=== PATIENT | female | born 1975 | race African-American/Black ===

== ENCOUNTER 2016-10-10 13:29 | Emergency (ER) | payer OTHER ==
--- NOTE | ~2016-10-10 | CT16 ---
[facility] A Service of [facility] RADIOLOGY TEXT RESULTS PATIENT: LIZETH LALMAS LOCATION: [facility] : 79 UNIT #: [id number] AGE: [address]: Piero Godinez DO SEX: F ORDER DR: [id number] [facility] [address] [place], [place] [address] [id number] E MR#: [id number] Acc #: [id number] NAME: LIZETH LLAMAS : 1975 SEX: F STUDY DATE/TIME: 10/10/2016 16:07 UNIT: [facility] ROOM: STUDY DESCRIPTION: CT Angio Chest for PE Attending Physician: Piero Godinez D.O. Ordering Physician: Piero Godinez D.O. Primary Care Physician: Primary Care Physician No MEDICAL IMAGING REPORT This report is preliminary unless electronic signature is present EXAM CTA chest, PE protocol INDICATIONS Chest pain, shortness of air and elevated D-dimer level for the past 3 days. PROCEDURE Contrast-enhanced CTA of the chest with attention on opacification of the pulmonary arteries. Coronal 3-D MIP and sagittal reformatted images were reconstructed and submitted. 80 mL of Isovue-370. This CT exam was performed with one or more of the following radiation dose reduction techniques: Automatic exposure control, adjustment of mA and/or kV according to patient size, and iterative reconstruction. COMPARISON None FINDINGS Suboptimal contrast bolus. No large central pulmonary embolus. Small peripheral pulmonary emboli are difficult to exclude. No convincing evidence for acute aortic injury. No acute findings in the included upper abdomen. There is some linear atelectasis in the lung bases. No dense consolidation. No aggressive appearing bone lesion. IMPRESSION 1. No definite acute findings. Contrast bolus is suboptimal, but there is no evidence for a large central pulmonary embolus. Small peripheral pulmonary emboli are difficult to exclude. 2. Linear atelectasis in the lung bases. [facility] A Service of [facility] RADIOLOGY TEXT RESULTS PATIENT: LIZETH LLAMAS LOCATION: [facility] : 79 UNIT #: [id number] AGE: [address]: Piero Godinez DO SEX: F ORDER DR: Dictated by... Hany Gamez M.D. THIS IS AN ELECTRONICALLY VERIFIED REPORT Hany Gamez M.D. at 10/12/2016 6:59 AM EED/psc TD: 10/10/2016 23:22 JOB #: [id number] MEDICAL IMAGING REPORT COPY
--- NOTE | ~2016-10-10 | EKG ---
PATIENT: LIZETH LLAMAS UNIT #: [id number] Ventricular Rate: 90 BPM Atrial Rate: 90 BPM P-R Interval: 134 ms QRS Duration: 88 ms Q-T Interval: 368 ms QTC Calculation(Bezet): 450 ms P Marshall: 25 degrees Calculated R Marshall: 3 degrees Calculated T Marshall: 16 degrees Diagnosis Line: Normal sinus rhythm Diagnosis Line: Moderate voltage criteria for LVH, may be normal Diagnosis Line: variant Diagnosis Line: Borderline ECG Diagnosis Line: No previous ECGs available Diagnosis Line: Confirmed by HOMERO WITT MD ([id number]) on Diagnosis Line: 10/11/2016 12:09:13 AM INTERPRETING MD: MIRYAM ORANTES
--- NOTE | ~2016-10-10 | NM69 ---
[facility] A Service of [facility] RADIOLOGY TEXT RESULTS PATIENT: LIZETH LLAMAS LOCATION: [facility] : 79 UNIT #: [id number] AGE: [address]: Piero Godinez DO SEX: F ORDER DR: [id number] [facility] [address] [place], [place] [address] [id number] E MR#: [id number] Acc #: [id number] NAME: LIZETH LLAMAS : 1975 SEX: F STUDY DATE/TIME: 10/10/2016 19:27 UNIT: [facility] ROOM: STUDY DESCRIPTION: NM Pulm Vent and Perf Attending Physician: Piero Godinez D.O. Ordering Physician: Piero Godinez D.O. Primary Care Physician: Primary Care Physician No MEDICAL IMAGING REPORT This report is preliminary unless electronic signature is present EXAM Ventilation/perfusion lung scan, 10/10/2016 HISTORY Chest pain, shortness of breath and hemoptysis for 3 days, elevated D-dimer 531, nausea, vomiting and fever. Evaluate for pulmonary embolus. FINDINGS The patient received 32 mCi of technetium 99m tagged DTPA aerosol for ventilation imaging followed by an intravenous injection of 5.5 mCi of technetium 99m tagged MAA for perfusion imaging. There is homogeneous distribution of the radiotracer throughout both lung pacheco on both ventilation and perfusion phases. No subsegmental or segmental perfusion defects are seen. IMPRESSION Normal ventilation/perfusion lung scan. Dictated by... Jesus Chin M.D. THIS IS AN ELECTRONICALLY VERIFIED REPORT Jesus Chin M.D. at 10/11/2016 10:50 AM SREEKANTH/john TD: 10/11/2016 03:23 JOB #: [id number] MEDICAL IMAGING REPORT COPY
[2016-10-10 14:52] LABS: BASOPHIL% 0.4 % (0-2.5); EOSINOPHIL# 0.2 X10e3 (0-0.7); EOSINOPHIL% 3.8 % (0.0-7.0); HEMOGLOBIN 12.9 gm/dL (12.0-16.0); LYMPHOCYTE% 40.1 % (17.0-45.0); MEAN CELL VOLUME 84.7 FL (83-96); MEAN CORPUSCULAR HEMOGLOBIN 28.8 PG (28-34); MEAN PLATELET VOLUME 8.4 FL (6.5-11.5); MONOCYTE# 0.4 X10e3 (0-1.0); MONOCYTE% 9.2 % (3.0-12.0); NEUTROPHIL# 2.3 X10e3 (1.5-7.1); NEUTROPHIL% 46.5 % (40-75); PLATELET COUNT 237 X10e3 (140-420); RED BLOOD COUNT 4.49 X10e (3.90-5.30); RED CELL DISTRIBUTION WIDTH 13.7 % (11.0-15.5); WHITE BLOOD COUNT 4.9 X10e3 (4.0-10.5)
[2016-10-10 14:53] LABS: DIFF IND NO
[2016-10-10 15:04] LABS: ALBUMIN SERUM 3.6 g/dL (3.5-5.0); ALKALINE PHOSPHATASE 40 U/L (32-92); ALT (SGPT) 17 U/L (10-40); AST (SGOT) 19 U/L (10-42); BILIRUBIN,TOTAL 0.4 mg/dL (0.2-2.0); BLOOD UREA NITROGEN 7 mg/dL (9-23); BUN/CREATININE RATIO 11.66; CALCIUM SERUM 8.5 mg/dL (8.4-10.2); CARBON DIOXIDE 25 mmol/L (22-31); CHLORIDE 106 mmol/L (100-111); CREATININE SERUM 0.6 mg/dL (0.6-1.4); GLOM FILT RATE Estimated ABOVE60 mL/min (>60); GLUCOSE FASTING 85 mg/dL (70-110); PARTIAL THROMBOPLASTIN TIME 25.1 SECONDS (23.5-31.3); POTASSIUM 3.4 mmol/L (3.5-5.1); PROTEIN TOTAL SERUM 7.4 g/dL (6.0-8.3); PROTHROMBIN TIME (PATIENT) 10.9 SECONDS (9.6-11.5); SODIUM 138 mmol/L (135-145)
[2016-10-10 15:09] LABS: BILIRUBIN, DIRECT <0.1 mg/dL (0.0-0.2); BILIRUBIN,INDIRECT 0.3 mg/dL (0.0-0.9)
[2016-10-10 17:09] LABS: INFLUENZA A NEG (NEG); INFLUENZA B NEG (NEG)
[2016-10-10 21:32] LABS: URINE SOURCE CLEAN CATCH
[2016-10-10 21:36] LABS: URINE APPEARANCE CLEAR; URINE BILIRUBIN NEG (NEG); URINE BLOOD NEG (NEG); URINE COLOR YELLOW; URINE GLUCOSE NEG (NEG); URINE KETONE NEG (NEG); URINE LEUKOCYTE ESTERASE NEG (NEG); URINE NITRATE NEG (NEG); URINE PH 6.5 (5-8); URINE PROTEIN NEG (NEG); URINE SPECIFIC GRAVITY 1.017 (1.003-1.035); URINE UROBILINOGEN 0.2 MG/DL (NEG)
[2016-10-10 21:39] LABS: CULTURE INDICATED? NO
== END 2016-10-10 22:10 | disposition home or self-care (01) ==
LOC: CED 13:29
PROVIDERS: Emergency Medicine
DX: J20.9 Acute bronchitis, unspecified (principal); J02.9 Acute pharyngitis, unspecified; R03.0 Elevated blood-pressure reading, without diagnosis of hypertension; Z88.2 Allergy status to sulfonamides; Z88.8 Allergy status to other drugs, medicaments and biological substances
CPT/HCPCS: 36415; 71275; 78582; 80048; 80076; 81003; 84484; 84703; 85025; 85379; 85610; 85730; 87651; 87804; 93005; 96374; 99284; A9540; A9567; J1885; Q9967